=== PATIENT | female | born 1975 ===

== ENCOUNTER 2023-11-29 12:42 | Outpatient (CLI) | payer OTHER | END 2023-11-29 12:54 | disposition home or self-care (01) | LOC: SONOGRAMA 12:42 | PROVIDERS: ATTEND Pathology Anatomic Pathology & Clinical Pathology | DX: D34 Benign neoplasm of thyroid gland (principal); E06.3 Autoimmune thyroiditis; E07.89 Other specified disorders of thyroid; E04.8 Other specified nontoxic goiter ==